=== PATIENT | male | born 1975 | race Caucasian/White ===

== ENCOUNTER 2019-09-28 14:37 | Emergency (ER) | payer SELFPAY ==
[2019-09-28] MEDS ORDERED: BUPIVACAINE 0.5% PF 10 ML VIAL ONE (15:06)
[2019-09-28] MEDS ORDERED: LIDOCAINE 1% 20 ML MDV ONE (15:07)
--- NOTE | 2019-09-28 15:24 | RAD REPORT ---
EXAM DESCRIPTION: RAD - Hand Right 3 View - 09/28/2019 3:10 pm CLINICAL HISTORY: Right hand pain status post injury FINDINGS: Avulsion fracture involves the third terminal tuft. No dislocation
--- NOTE | 2019-09-28 16:18 | ER ---
Nurse's Notes [facility] Name: Liam Phillips Age: 43 yrs Sex: Male : 1975 Arrival Date: 09/28/2019 Time: 14:38 Bed 14 Private MD: Diagnosis: Avulsion injury of finger Presentation: 09/27 14:48 Chief complaint: Patient states: R third finger crush injury that occurred at 1130 this ss morning. Pt reports that his finger was crush between two pipes. Care prior to arrival: None. Mechanism of Injury: Crush injury. Trauma event details:. 14:48 Acuity: LAY 3 ss 14:48 Method Of Arrival: Ambulatory ss 14:48 Coronavirus screen: Proceed with normal triage. Patient denies a cough. Patient denies ss shortness of breath or difficulty breathing. Patient denies measured and/or subjective temperature greater than 100.4F prior to today's visit. Patient denies travel on a cruise ship or to a country the [facility] currently lists as an affected area. Patient denies contact with known and/or suspected case of COVID-19. Ebola Screen: Patient denies exposure to infectious person. Patient denies travel to an Ebola-affected area in the 21 days before illness onset. Initial Sepsis Screen: Does the patient meet any 2 criteria? No. Patient's initial sepsis screen is negative. Does the patient have a suspected source of infection? No. Patient's initial sepsis screen is negative. Risk Assessment: Do you want to hurt yourself or someone else? Patient reports no desire to harm self or others. Onset of symptoms was September 28, 2019. Historical: - Allergies: 14:52 No Known Allergies; ss - Immunization history: Last tetanus immunization: - up to date. - Social history:: Smoking status: Patient reports the use of cigarette tobacco products, smokes one pack cigarettes per day. Screenin:48 Abuse screen: Denies threats or abuse. Denies injuries from another. Tuberculosis ss screening: Never had TB. Primary Survey: 14:52 NO uncontrolled hemorrhage observed. A: The patient is alert. Airway: patent. ls4 Breathing/Chest: Respiratory pattern: regular, Respiratory effort: spontaneous, unlabored, Breath sounds: clear, bilaterally. Chest inspection: symmetrical rise and fall of the chest. Circulation: Cardiac rhythm: sinus rhythm Heart tones present. Pulses: palpable right radial artery, right dorsalis pedis artery, left radial artery and left dorsalis pedis artery. Disability Alert. Exposure/Environment: All clothing and personal items were removed. no clothing removed. Assessment: 14:52 General: Appears in no apparent distress. uncomfortable, Behavior is calm, cooperative. ls4 Pain: Complains of pain in dorsal aspect of proximal phalanx of right middle finger Pain currently is 10 out of 10 on a pain scale. Quality of pain is described as throbbing, pulsating. 14:52 Neuro: No deficits noted. EENT: No deficits noted. No signs and/or symptoms were ls4 reported regarding the EENT system. Cardiovascular: No deficits noted. Respiratory: No deficits noted. GI: No deficits noted. : No deficits noted. Derm: Wound noted dorsal aspect of proximal phalanx of right middle finger. Musculoskeletal: Circulation, motion, and sensation intact. Capillary refill < 3 seconds, Range of motion: intact in all extremities. Vital Signs: 14:48 BP 168 / 91; Pulse 85; Resp 16; Temp 98.5(TE); Pulse Ox 97% on R/A; Weight 75.3 kg; ss Height 5 ft. 9 in. (175.26 cm); Pain 0/10; 14:48 Body Mass Index 24.51 (75.30 kg, 175.26 cm) Amy Coma Score: 14:48 Eye Response: spontaneous(4). Verbal Response: oriented(5). Motor Response: obeys commands(6). Total: 15. Trauma Score (Adult): 14:48 Eye Response: spontaneous(1); Verbal Response: oriented(1); Motor Response: obeys ss commands(2); Systolic BP: > 89 mm Hg(4); Respiratory Rate: 10 to 29 per min(4); Amy Score: 15; Trauma Score: 12 ED Course: 14:38 Patient arrived in ED. as 14:48 Patient has correct armband on for positive identification. Bed in low position. Call ss light in reach. 14:48 Patient maintains SpO2 saturation greater than 95% on room air. ss 14:50 Triage completed. ss 14:54 Tamia Epps RN is Primary Nurse. ls4 14:58 Sacha Mays PA is PHCP. jr8 14:58 Kenneth Curiel MD is Attending Physician. jr8 15:11 Hand Right 3 View XRAY In Process Unspecified. EDMS 16:16 Oskar Proctor MD is Referral Physician. jr8 16:19 No apparent distress. ls4 16:19 Assist provider with laceration repair on dorsal aspect of proximal phalanx of right ls4 middle finger Performed by Sacha Mays PA Dressed with 4X4s, Kerlix, Xeroform, Patient tolerated well. wound soaked in chlorhex and saline prior to dressing. Patient did not have IV access during this emergency room visit. 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 Exp: ls4 05/26/2021. Lot #: [id number]. } Route: IM; Site: right deltoid; 16:43 Follow up: Response: No adverse reaction ls4 Outcome: 16:17 Discharge ordered by . jr8 16:29 Patient left the ED. ls4 Signatures: Dispatcher [employer] EDNH Aleja Vallejo Shelby, MARIAN RN Sacha Mays PA PA jr Tamia Epps, MARIAN RN ls4
--- NOTE | 2019-09-28 16:18 | EDPHYS ---
Physician Documentation [facility] Name: Liam Phillips Age: 43 yrs Sex: Male : 1975 Arrival Date: 09/28/2019 Time: 14:38 Bed 14 Private MD: ED Physician Kenneth Curiel HPI: 09/27 15:59 This 43 yrs old Male presents to ER via Ambulatory with complaints of Crush jr8 Injury - finger. 15:59 Mechanism of injury: Crush injury: from industrial equipment. Onset: The jr8 symptoms/episode began/occurred acutely, today. The patient has not experienced similar symptoms in the past. The patient has not recently seen a physician. Patient was at work and caught hand between two pipe. Cased degloving of distal pad of middle finger on right hand . Historical: - Allergies: 14:52 No Known Allergies; ss - Immunization history: Last tetanus immunization: - up to date. - Social history:: Smoking status: Patient reports the use of cigarette tobacco products, smokes one pack cigarettes per day. ROS: 15:59 Eyes: Negative for injury, pain, redness, and discharge, ENT: Negative for injury, jr8 pain, and discharge, Neck: Negative for injury, pain, and swelling, Cardiovascular: Negative for chest pain, palpitations, and edema, Respiratory: Negative for shortness of breath, cough, wheezing, and pleuritic chest pain, Abdomen/GI: Negative for abdominal pain, nausea, vomiting, diarrhea, and constipation, Back: Negative for injury and pain, Skin: Negative for injury, rash, and discoloration, Neuro: Negative for headache, weakness, numbness, tingling, and seizure. 15:59 MS/extremity: Positive for pain, avulsion . Exam: 15:59 Eyes: Pupils equal round and reactive to light, extra-ocular motions intact. Lids and jr8 lashes normal. Conjunctiva and sclera are non-icteric and not injected. Cornea within normal limits. Periorbital areas with no swelling, redness, or edema. ENT: Nares patent. No nasal discharge, no septal abnormalities noted. Tympanic membranes are normal and external auditory canals are clear. Oropharynx with no redness, swelling, or masses, exudates, or evidence of obstruction, uvula midline. Mucous membranes moist. Neck: Trachea midline, no thyromegaly or masses palpated, and no cervical lymphadenopathy. Supple, full range of motion without nuchal rigidity, or vertebral point tenderness. No Meningismus. Cardiovascular: Regular rate and rhythm with a normal S1 and S2. No gallops, murmurs, or rubs. Normal PMI, no JVD. No pulse deficits. Respiratory: Lungs have equal breath sounds bilaterally, clear to auscultation and percussion. No rales, rhonchi or wheezes noted. No increased work of breathing, no retractions or nasal flaring. Abdomen/GI: Soft, non-tender, with normal bowel sounds. No distension or tympany. No guarding or rebound. No evidence of tenderness throughout. Back: No spinal tenderness. No costovertebral tenderness. Full range of motion. Skin: Warm, dry with normal turgor. Normal color with no rashes, no lesions, and no evidence of cellulitis. Neuro: Awake and alert, GCS 15, oriented to person, place, time, and situation. Cranial nerves II-XII grossly intact. Motor strength 5/5 in all extremities. Sensory grossly intact. Cerebellar exam normal. Normal gait. 15:59 Musculoskeletal/extremity: Extremities: grossly normal except: noted in the right middle finger: Patient has avulsion of pad of right middle finger. tender to touch. Nail is preserved. No other trauma noted ', ROM: intact in all extremities, Circulation is intact in all extremities. Sensation intact. Vital Signs: 14:48 BP 168 / 91; Pulse 85; Resp 16; Temp 98.5(TE); Pulse Ox 97% on R/A; Weight 75.3 kg; ss Height 5 ft. 9 in. (175.26 cm); Pain 0/10; 14:48 Body Mass Index 24.51 (75.30 kg, 175.26 cm) Amy Coma Score: 14:48 Eye Response: spontaneous(4). Verbal Response: oriented(5). Motor Response: obeys ss commands(6). Total: 15. Trauma Score (Adult): 14:48 Eye Response: spontaneous(1); Verbal Response: oriented(1); Motor Response: obeys ss commands(2); Systolic BP: > 89 mm Hg(4); Respiratory Rate: 10 to 29 per min(4); [place] Score: 15; Trauma Score: 12 Procedures: 15:59 Nerve block: (digital) of dorsal aspect of proximal phalanx of right middle finger jr8 Medication: Lidocaine 1% with epinephrine, Marcaine 0.5%, Amount: 4 mls were injected, Effect: the patient has resolution of the pain, Set up for procedure. Performed by Sacha MCGUIRE Patient tolerated well. MDM: 14:58 Patient medically screened. jr8 15:59 Data reviewed: vital signs, nurses notes, radiologic studies, plain films, and as a jr8 result, I will discharge patient. Data interpreted: Pulse oximetry: on room air is 97 %. Interpretation: normal. Counseling: I had a detailed discussion with the patient and/or guardian regarding: the historical points, exam findings, and any diagnostic results supporting the discharge/admit diagnosis, radiology results, the need for outpatient follow up, a hand specialist, to return to the emergency department if symptoms worsen or persist or if there are any questions or concerns that arise at home. ED course: Revision of skin completed on avulsed pad. Otherwise no suturing needed due to type of injury. Will have patient f/u with hand for wound management . 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 Exp: ls4 05/26/2021. Lot #: [id number]. } Route: IM; Site: right deltoid; 16:43 Follow up: Response: No adverse reaction ls4 Disposition: 09/28 14:54 Co-signature as Attending Physician, Kenneth Curiel MD I agree with the assessment and kdr plan of care. Disposition: 09/28/19 16:17 Discharged to Home. Impression: Avulsion injury of finger. - Condition is Stable. - Discharge Instructions: Deep Skin Avulsion. - Prescriptions for Keflex 500 mg Oral Capsule - take 1 capsule by ORAL route every 8 hours for 10 days; 30 capsule. - Medication Reconciliation Form, Thank You Letter, Antibiotic Education, Prescription Opioid Use form. - Follow up: Oskar Proctor MD; When: 2 - 3 days; Reason: Wound Recheck, Recheck today's complaints, Continuance of care, Re-evaluation by your physician. - Problem is new. - Symptoms have improved. Signatures: Dispatcher [employer] EDMS Kenneth Curiel MD MD [facility] Bridgette Kee RN RN Sacha Mays PA PA jr8 Tamia Epps RN RN ls4 Corrections: (The following items were deleted from the chart) 09/27 16:29 16:17 09/28/2019 16:17 Discharged to Home. Impression: Avulsion injury of finger. ls4 Condition is Stable. Forms are Medication Reconciliation Form, Thank You Letter, Antibiotic Education, Prescription Opioid Use. Follow up: Oskar Proctor; When: 2 - 3 days; Reason: Wound Recheck, Recheck today's complaints, Continuance of care, Re-evaluation by your physician. Problem is new. Symptoms have improved. jr8
[2019-09-28] MEDS ORDERED: TETANUS & DIPHTHERIA TOX,ADULT 0.5 ML VIAL ONE (16:30)
[2019-09-28 16:34] VITALS: BP 168/91; TEMP 98.5; O2SAT 97
== END 2019-09-28 16:29 | disposition home or self-care (01) ==
LOC: ER 14:37
DX: S61.232A Puncture wound without foreign body of right middle finger without damage to nail, initial encounter (principal); W31.89XA Contact with other specified machinery, initial encounter; Y93.89 Activity, other specified; Y92.89 Other specified places as the place of occurrence of the external cause; Y99.8 Other external cause status; Z23 Encounter for immunization; F17.210 Nicotine dependence, cigarettes, uncomplicated
CPT/HCPCS: 64450; 90471; 90714; 99284